=== PATIENT | male | born 1990 | race Hispanic/Latino ===

== ENCOUNTER → 2023-12-19 | Emergency (ER) | payer SELFPAY ==
--- NOTE | 2023-12-19 19:28 | EDPHYS ---
Physician Documentation [facility] Name: Anil Wolff Age: 33 yrs Sex: Male : 1990 Arrival Date: 12/19/2023 Time: 19:16 Bed IW3 Private MD: NORA Physician Sivakumar Pederson HPI: 12/18 19:26 This 33 yrs old Male presents to ER via Unassigned with complaints of Ear Pain. kb 19:26 Pt is a 33 year old male who presents for left ear pain for 4 days. Denies fever. kb Denies any other symptoms. Historical: - Allergies: 19:37 No Known Allergies; vc1 - Home Meds: 19:37 None [Active]; vc1 - PMHx: 19:37 None; vc1 - PSHx: 19:37 None; vc1 - Immunization history:: Client reports receiving the 2nd dose of the Covid vaccine, Flu vaccine is up to date. - Social history:: Smoking status: Patient reports the use of cigarette tobacco products, smokes one pack cigarettes per day. ROS: 19:26 Constitutional: As per HPI kb Exam: 19:26 Constitutional: This is a well developed, well nourished patient who is awake, alert, kb and in no acute distress. Head/Face: Normocephalic, atraumatic. Cardiovascular: Regular rate Respiratory: Respirations even and unlabored. No increased work of breathing. Talking in full sentences Skin: Warm, dry with normal turgor. Normal color. MS/ Extremity: Pulses equal, no cyanosis. Neurovascular intact. Full, normal range of motion. Neuro: Awake and alert, GCS 15, oriented to person, place, time, and situation. Moves all extremities. Normal gait. 19:26 ENT: Ear canal(s): erythema, that is moderate, of the left canal, purulent discharge, that is minimal, in the left canal, swelling, that is moderate, of the left canal, TM's: bulging, on the left, Vital Signs: 19:35 BP 140 / 93; Pulse 99; Resp 15; Temp 99; Pulse Ox 99% ; Weight 40.82 kg; Height 5 ft. 2 vc1 in. ; Pain 0/10; 19:35 Body Mass Index 16.46 (40.82 kg, 157.48 cm) vc1 19:35 Pain Scale: Adult vc1 MDM: 19:24 Patient medically screened. kb 19:26 Differential diagnosis: otitis media, otitis externa, ruptured TM, foreign body, acute kb otalgia. Data reviewed: vital signs, nurses notes. Counseling: I had a detailed discussion with the patient and/or guardian regarding the historical points, exam findings, and any diagnostic results supporting the discharge/admit diagnosis, the need for outpatient follow up, a family practitioner, to return to the emergency department if symptoms worsen or persist or if there are any questions or concerns that arise at home. Administered Medications: No medications were administered Disposition Summary: 12/19/23 19:28 Discharge Ordered Notes: Location: Home kb Condition: Stable kb Diagnosis - Otitis media, unspecified, left ear kb - Unspecified otitis externa, left ear kb Followup: kb - With: Emergency Department - When: As needed - Reason: Worsening of condition Followup: kb - With: Private Physician - When: 2 - 3 days - Reason: Recheck today's complaints, Continuance of care, Re-evaluation by your physician Discharge Instructions: - Discharge Summary Sheet kb - Otitis Externa, [id number] kb - Otitis Media, Adult, [id number] kb - Ear Drops, Adult, [id number] kb Forms: - Medication Reconciliation Form kb - Thank You Letter kb - Antibiotic Education kb - Prescription Opioid Use kb - Patient Portal Instructions kb - Leadership Thank You Letter kb Prescriptions: - Amoxicillin 875 mg Oral Tablet - take 1 tablet ORAL route every 12 hours for 10 days; 20 tablet; Refills: 0, kb Product Selection Permitted - Ciprodex 0.3-0.1 % Otic drops, suspension - instill 4 drops OTIC route every 12 hours for 7 days , for ears ONLY; 1 unit; kb Refills: 0, Product Selection Permitted Signatures: Shama Gutierrez FNP-C FNP-Georgette Tello RN RN vc1
--- NOTE | 2023-12-19 19:41 | ER ---
Nurse's Notes [facility] Name: Anli Wolff Age: 33 yrs Sex: Male : 1990 Arrival Date: 12/19/2023 Time: 19:16 Bed IW3 Private MD: Diagnosis: Otitis media, unspecified, left ear;Unspecified otitis externa, left ear Presentation: 12/18 19:35 Chief complaint: Patient states: left ear pain with drainage. Coronavirus screen: vc1 Vaccine status: Patient reports receiving the 2nd dose of the covid vaccine. At this time, the client does not indicate any symptoms associated with coronavirus-19. Ebola Screen: Patient negative for fever greater than or equal to 101.5 degrees Fahrenheit, and additional compatible Ebola Virus Disease symptoms Patient denies exposure to infectious person. Patient denies travel to an Ebola-affected area in the 21 days before illness onset. No symptoms or risks identified at this time. Initial Sepsis Screen: Does the patient meet any 2 criteria? No. Patient's initial sepsis screen is negative. Does the patient have a suspected source of infection? No. Patient's initial sepsis screen is negative. Risk Assessment: Do you want to hurt yourself or someone else? Patient reports no desire to harm self or others. Onset of symptoms was December 16, 2023. Care prior to arrival: None. Activity prior to arrival: None. 19:35 Method Of Arrival: Ambulatory vc1 19:35 Acuity: SYIBL 4 vc1 Triage Assessment: 19:37 General: Appears in no apparent distress. uncomfortable, well groomed, Behavior is vc1 calm, cooperative, appropriate for age. Pain: Complains of pain in left ear Pain does not radiate. Pain currently is 10 out of 10 on a pain scale. Quality of pain is described as sharp, pulsating, Pain began 2-3 days ago. Is continuous, Alleviated by nothing. Also complains of sleeplessness. EENT: Ear canal w/ drainage noted from left ear Reports pain in left ear Pain is 10 out of 10 on a pain scale. Neuro: Level of Consciousness is awake, alert, obeys commands, Oriented to person, place, time, situation, Appropriate for age. Cardiovascular: No deficits noted. Respiratory: Airway is patent Respiratory effort is even, unlabored, Respiratory pattern is regular, symmetrical. GI: No deficits noted. No signs and/or symptoms were reported involving the gastrointestinal system. : No deficits noted. No signs and/or symptoms were reported regarding the genitourinary system. Derm: No deficits noted. No signs and/or symptoms reported regarding the dermatologic system. Musculoskeletal: No deficits noted. No signs and/or symptoms reported regarding the musculoskeletal system. Historical: - Allergies: 19:37 No Known Allergies; vc1 - Home Meds: 19:37 None [Active]; vc1 - PMHx: 19:37 None; vc1 - PSHx: 19:37 None; vc1 - Immunization history:: Client reports receiving the 2nd dose of the Covid vaccine, Flu vaccine is up to date. - Social history:: Smoking status: Patient reports the use of cigarette tobacco products, smokes one pack cigarettes per day. Screenin:39 [facility] ED Fall Risk Assessment (Adult) History of falling in the last 3 months, vc1 including since admission No falls in past 3 months (0 pts) Confusion or Disorientation No (0 pts) Intoxicated or Sedated No (0 pts) Impaired Gait No (0 pts) Mobility Assist Device Used No (0 pt) Altered Elimination No (0 pt) Score/Fall Risk Level 0 - 2 = Low Risk Oriented to surroundings, Maintained a safe environment, Educated pt \T\ family on fall prevention, incl call for assistance when getting out of bed. Abuse screen: Denies threats or abuse. Nutritional screening: No deficits noted. Tuberculosis screening: No symptoms or risk factors identified. Assessment: 19:40 Reassessment: See triage assessment. General: [employer] Bienvenido, #[id number]. vc1 Vital Signs: 19:35 BP 140 / 93; Pulse 99; Resp 15; Temp 99; Pulse Ox 99% ; Weight 40.82 kg; Height 5 ft. 2 vc1 in. ; Pain 0/10; 19:35 Body Mass Index 16.46 (40.82 kg, 157.48 cm) vc1 19:35 Pain Scale: Adult vc1 ED Course: 19:18 Patient arrived in ED. ra3 19:24 Shama Gutierrez FNP-C [facility]. kb 19:24 Sivakumar Pederson MD is Attending Physician. kb 19:37 Triage completed. vc1 19:39 Arm band placed on right wrist. vc1 19:39 No provider procedures requiring assistance completed. Patient did not have IV access vc1 during this emergency room visit. 19:40 Provided Education on: continue abx even if ear feels better. vc1 19:40 dc'd from triage. vc1 Administered Medications: No medications were administered Medication: 19:40 VIS not applicable for this client. vc1 Outcome: 19:28 Discharge ordered by . ramu 19:39 Discharged to home ambulatory, vc1 19:39 Condition: good 19:39 Discharge instructions given to patient, Instructed on discharge instructions, follow up and referral plans. medication usage, Demonstrated understanding of instructions, follow-up care, medications, Prescriptions given X 2, 19:41 Patient left the ED. vc1 Signatures: Shama Gutierrez, ESTEBAN CASTANEDA-Georgette Tello RN RN vc1 Valentina Oliver ra3
[2023-12-19 20:20] VITALS: BP 140/93; TEMP 99; O2SAT 99
== END ==
LOC: ER 19:16
DX: H66.92 Otitis media, unspecified, left ear (principal); H60.92 Unspecified otitis externa, left ear; F17.210 Nicotine dependence, cigarettes, uncomplicated